=== PATIENT | male | born 1940 | race Caucasian/White ===

== ENCOUNTER → 2016-10-05 | Outpatient (CLI) | payer MEDICARE | END | disposition home or self-care (01) | LOC: PCVCCLINIC 10:52 | PROVIDERS: ATTEND Family Medicine | DX: E78.5 Hyperlipidemia, unspecified (principal); I65.29 Occlusion and stenosis of unspecified carotid artery; I73.9 Peripheral vascular disease, unspecified | CPT/HCPCS: 80061 ==

== ENCOUNTER → 2016-10-24 | Outpatient (CLI) | payer MEDICARE | END | disposition home or self-care (01) | LOC: PCVCCLINIC 14:25 | PROVIDERS: ATTEND Nuclear Medicine Nuclear Cardiology | DX: I73.9 Peripheral vascular disease, unspecified (principal); I25.10 Atherosclerotic heart disease of native coronary artery without angina pectoris; I77.9 Disorder of arteries and arterioles, unspecified; I10 Essential (primary) hypertension; E78.00 Pure hypercholesterolemia, unspecified | CPT/HCPCS: G0463 ==

== ENCOUNTER → 2017-03-16 | Outpatient (CLI) | payer MEDICARE | END | disposition home or self-care (01) | LOC: PCVCCLINIC 08:00 | PROVIDERS: ATTEND Nuclear Medicine Nuclear Cardiology | DX: I73.9 Peripheral vascular disease, unspecified (principal); I25.10 Atherosclerotic heart disease of native coronary artery without angina pectoris; I77.89 Other specified disorders of arteries and arterioles; I10 Essential (primary) hypertension; E78.00 Pure hypercholesterolemia, unspecified; F17.200 Nicotine dependence, unspecified, uncomplicated; Z96.651 Presence of right artificial knee joint; Z79.82 Long term (current) use of aspirin | CPT/HCPCS: G0463 ==

== ENCOUNTER → 2017-11-09 | Outpatient (CLI) | payer OTHER, MEDICARE | END | disposition home or self-care (01) | LOC: PCVCIMAG 09:38 | DX: I73.9 Peripheral vascular disease, unspecified (principal); I77.1 Stricture of artery; I10 Essential (primary) hypertension; E78.5 Hyperlipidemia, unspecified; Z95.820 Peripheral vascular angioplasty status with implants and grafts | CPT/HCPCS: 93923; 93925; 93978 ==

== ENCOUNTER → 2017-11-13 | Outpatient (CLI) | payer OTHER | END | disposition home or self-care (01) | LOC: PCVCCLINIC 15:16 | DX: I73.9 Peripheral vascular disease, unspecified (principal); I25.10 Atherosclerotic heart disease of native coronary artery without angina pectoris; I77.9 Disorder of arteries and arterioles, unspecified; I10 Essential (primary) hypertension; E78.00 Pure hypercholesterolemia, unspecified; F17.210 Nicotine dependence, cigarettes, uncomplicated; Z79.899 Other long term (current) drug therapy; Z79.82 Long term (current) use of aspirin | CPT/HCPCS: G0463 ==

== ENCOUNTER → 2018-05-21 | Outpatient (CLI) | payer OTHER ==
--- NOTE | 2018-05-21 13:45 | PCVCIMAG ---
EXAM: BILATERAL CAROTID DUPLEX INDICATION: Carotid Occlusive Disease. FINDINGS: Doppler Measurements (centimeters per second): RIGHT: Peak CCA-98, Peak ECA-104, Diastolic ICA-15, Peak ICA-70, ICA/CCA Ratio-0.7. LEFT: Peak CCA-104, Peak ECA-339, Diastolic ICA-21, Peak ICA-75, ICA/CCA Ratio-0.7. RIGHT CAROTID: The carotid bulb has minimal plaque. The proximal internal carotid artery shows no significant stenosis. The common carotid artery shows no significant stenosis. The external carotid artery shows no significant stenosis. LEFT CAROTID: The carotid bulb has mild plaque. The proximal internal carotid artery shows <40% stenosis. The common carotid artery shows no significant stenosis. The external carotid artery shows 90% stenosis. Antegrade flow in both vertebral arteries. IMPRESSION: No significant stenosis of the right internal carotid artery with minimal plaque. <40% stenosis of the left internal carotid artery with mild plaque. LOC:[place] [id number]
--- NOTE | 2018-05-21 14:39 | PCVCIMAG ---
EXAM: BILATERAL LOWER EXTREMITY ARTERIAL DUPLEX INDICATION: Peripheral Arterial Disease. Leg pain. FINDINGS: Right Leg: Common femoral and profunda femoral arteries are patent. Superficial femoral and popliteal artery maintaining satisfactory patency. Previous stent superficial femoral artery remains patent. 70% stenosis mid anterior tibial artery. The peroneal and posterior tibial arteries are patent. Left Leg: Common femoral and profunda femoral arteries are patent. Mild increased systolic velocity 308 cm/s mid superficial femoral artery consistent with 50% restenosis at the proximal margin of a prior stent. Superficial femoral artery and popliteal artery otherwise maintaining good patency. 60% stenosis proximal/mid anterior tibial artery. The peroneal and posterior tibial arteries are patent. IMPRESSION: Previous right superficial femoral artery stent maintaining good patency. 70% stenosis mid right anterior tibial artery. 50% restenosis mid left superficial femoral artery at the proximal margin of a prior stent. 60% stenosis proximal/mid left anterior tibial artery. LOC:[id number]
== END | disposition home or self-care (01) ==
LOC: PCVCIMAG 13:07
PROVIDERS: ATTEND Nuclear Medicine Nuclear Cardiology
DX: I10 Essential (primary) hypertension (principal); I73.9 Peripheral vascular disease, unspecified; I65.22 Occlusion and stenosis of left carotid artery; Z72.0 Tobacco use
CPT/HCPCS: 93880; 93925

== ENCOUNTER → 2018-11-20 | Outpatient (CLI) | payer OTHER ==
--- NOTE | 2018-11-20 08:29 | PCVCIMAG ---
EXAM: NONINVASIVE ARTERIAL EXAMINATION OF BOTH LOWER EXTREMITIES INCLUDING PRE AND POST EXERCISE PRESSURE MEASUREMENTS AND DOPPLER WAVEFORMS INDICATION: Peripheral Arterial Disease. Leg pain. FINDINGS: Right Brachial: 142 mm Hg. Right Dorsalis Pedis: 154 mm Hg. Right Posterior Tibial: 145 mm Hg. Right MEL = 1.08. Left Brachial: 132 mm Hg. Left Dorsalis Pedis: 140 mm Hg. Left Posterior Tibial: 152 mm Hg. Left MEL = 1.07. Post Exercise: Right Brachial 158 mm Hg. Right Dorsalis Pedis: 128 mm Hg. Left Posterior Tibial: 152 mm Hg. Right MEL = 0.81. Left MEL = 0.96. IMPRESSION: No resting ischemia in the right lower extremity. Minimal exercise induced ischemia in the right lower extremity. No resting ischemia in the left lower extremity. No exercise induced ischemia in the left lower extremity. LOC:[id number]
--- NOTE | 2018-11-20 08:42 | PCVCIMAG ---
EXAM: AORTOILIAC DUPLEX INDICATION: Peripheral arterial disease FINDINGS: AORTA: Suprarenal aorta measures maximum diameter of 2.8 cm. There is not a fusiform infrarenal aortic aneurysm. The infrarenal aorta measures maximum diameter of 2.2 cm. No aortic stenosis. RIGHT COMMON ILIAC ARTERY: Maximum diameter is 1.2 cm. No significant stenosis. RIGHT EXTERNAL ILIAC ARTERY: No significant stenosis. LEFT COMMON ILIAC ARTERY: Maximum diameter is 1.3 cm. No significant stenosis. LEFT EXTERNAL ILIAC ARTERY: No significant stenosis. IMPRESSION: No abdominal aortic aneurysm. No aortoiliac stenosis seen. Previous bilateral iliac artery stents maintaining satisfactory patency. LOC:[id number]
--- NOTE | 2018-11-20 09:37 | PCVCIMAG ---
EXAM: BILATERAL LOWER EXTREMITY ARTERIAL DUPLEX INDICATION: Peripheral Arterial Disease. Leg pain. FINDINGS: Right Leg: Common femoral and profunda femoral arteries are patent. Superficial femoral and popliteal artery are patent. Previous stent superficial femoral artery is patent. Occlusion mid anterior tibial artery. Peroneal and posterior tibial arteries are patent. Left Leg: Common femoral and profunda femoral arteries are patent. Increased systolic velocity mid superficial femoral artery 250 cm/s at the proximal margin of prior stent consistent with 40-50% stenosis. Popliteal artery is patent. Mild stenosis proximal anterior tibial artery. Peroneal artery and posterior tibial arteries are patent. IMPRESSION: Occlusion mid right anterior tibial artery. Otherwise no flow limiting stenosis in the right lower extremity. Previous right superficial femoral artery stent is patent. 40-50% stenosis mid left superficial femoral artery at the proximal margin of prior stent unchanged since prior study and not felt to be flow-limiting. LOC:[id number]
== END | disposition home or self-care (01) ==
LOC: PCVCIMAG 08:57
PROVIDERS: ATTEND Nuclear Medicine Nuclear Cardiology
DX: I73.9 Peripheral vascular disease, unspecified (principal); E78.00 Pure hypercholesterolemia, unspecified; Z72.0 Tobacco use
CPT/HCPCS: 93924; 93925; 93978

== ENCOUNTER → 2019-05-27 | Outpatient (CLI) | payer OTHER ==
--- NOTE | 2019-05-27 09:35 | PCVCIMAG ---
EXAM: BILATERAL CAROTID DUPLEX INDICATION: Carotid Occlusive Disease. FINDINGS: Doppler Measurements (centimeters per second): RIGHT: Peak CCA-99, Peak ECA-109, Diastolic ICA-19, Peak ICA-81, ICA/CCA Ratio-0.8. LEFT: Peak CCA-92, Peak ECA-407, Diastolic ICA-12, Peak ICA-75, ICA/CCA Ratio-0.8. RIGHT CAROTID: The carotid bulb has minimal plaque. The proximal internal carotid artery shows no significant stenosis. The common carotid artery shows no significant stenosis. The external carotid artery shows no significant stenosis. LEFT CAROTID: The carotid bulb has mild plaque. The proximal internal carotid artery shows <40% stenosis. The common carotid artery shows no significant stenosis. The external carotid artery shows 90% stenosis. Antegrade flow in both vertebral arteries. IMPRESSION: Minimal stenosis of the right internal carotid artery with no significant plaque. <40% stenosis of the left internal carotid artery with mild plaque. No change since May 2019. LOC:[id number]
--- NOTE | 2019-05-27 10:17 | PCVCIMAG ---
EXAM: BILATERAL LOWER EXTREMITY ARTERIAL DUPLEX INDICATION: Peripheral Arterial Disease. Leg pain. FINDINGS: Right Leg: Common femoral and profunda femoral arteries are patent. Superficial femoral and popliteal are patent. Previous superficial femoral artery stent is patent. Occlusion of the distal anterior tibial artery. The peroneal and posterior tibial arteries are patent. Left Leg: Common femoral and profunda femoral arteries are patent. Increased systolic velocity 260 cm/s distal superficial femoral artery at the proximal margin of a prior stent consistent with 40-50% restenosis is unchanged since November 2018 study. Popliteal artery is patent. Mild stenosis proximal anterior tibial artery. The peroneal artery and posterior tibial arteries are patent. IMPRESSION: Occlusion distal right anterior tibial artery. Otherwise no flow limiting stenosis in the right lower extremity. Previous right superficial femoral artery stent remains patent. 40-50% restenosis mid/distal left superficial femoral artery the proximal margin of prior stent is unchanged since November 2018 study. Mild stenosis proximal left anterior tibial artery. LOC:[id number]
== END | disposition home or self-care (01) ==
LOC: PCVCIMAG 08:55
PROVIDERS: ATTEND Nuclear Medicine Nuclear Cardiology
DX: I65.23 Occlusion and stenosis of bilateral carotid arteries (principal); I73.9 Peripheral vascular disease, unspecified; I25.10 Atherosclerotic heart disease of native coronary artery without angina pectoris; I10 Essential (primary) hypertension; E78.00 Pure hypercholesterolemia, unspecified; Z72.0 Tobacco use; Z72.89 Other problems related to lifestyle; Z79.899 Other long term (current) drug therapy; Z79.82 Long term (current) use of aspirin
CPT/HCPCS: 93880; 93925

== ENCOUNTER → 2019-07-22 | Outpatient (CLI) | payer OTHER ==
--- NOTE | 2019-07-22 16:34 | PCVCIMAG ---
EXAM: RIGHT LOWER EXTREMITY ARTERIAL DUPLEX INDICATION: Peripheral Arterial Disease. Leg pain. FINDINGS: Right Leg: Common femoral and profunda femoral arteries are patent. Superficial femoral artery and popliteal artery are patent. Previous stent superficial femoral artery is patent. Unchanged occlusion distal anterior tibial artery. The peroneal and posterior tibial arteries are patent. IMPRESSION: Unchanged occlusion distal right anterior tibial artery. Otherwise no flow limiting stenosis in the right lower extremity. Previous stent right superficial femoral artery maintaining satisfactory patency. LOC:[id number]
== END | disposition home or self-care (01) ==
LOC: PCVCIMAG 15:40
PROVIDERS: ATTEND Nuclear Medicine Nuclear Cardiology
DX: I70.201 Unspecified atherosclerosis of native arteries of extremities, right leg (principal); F17.210 Nicotine dependence, cigarettes, uncomplicated
CPT/HCPCS: 93926